=== PATIENT | male | born 1990 | race Caucasian/White ===

== ENCOUNTER 2021-04-10 19:23 | Emergency (ER) | payer BC ==
[2021-04-10] MEDS ORDERED: Fluorescein Opthalmic Strip ONE (19:36)
[2021-04-10] MEDS ORDERED: Tetracaine 0.5% PF 4 ML BOT ONE (19:36)
== END 2021-04-10 20:05 | disposition home or self-care (01) ==
LOC: MADERS 19:23
DX: H10.9 Unspecified conjunctivitis (principal); I10 Essential (primary) hypertension; F17.220 Nicotine dependence, chewing tobacco, uncomplicated; Z79.899 Other long term (current) drug therapy
CPT/HCPCS: 99282

== ENCOUNTER 2022-05-28 21:20 | Emergency (ER) | payer BC, OTHER ==
[2022-05-28] MEDS ORDERED: Bacitracin 1 PK ONE (22:25)
== END 2022-05-28 22:36 | disposition home or self-care (01) ==
LOC: MADERS 21:20
DX: S61.511D Laceration without foreign body of right wrist, subsequent encounter (principal); I10 Essential (primary) hypertension; F17.220 Nicotine dependence, chewing tobacco, uncomplicated; Z79.899 Other long term (current) drug therapy; X58.XXXD Exposure to other specified factors, subsequent encounter
CPT/HCPCS: 99282

== ENCOUNTER 2023-02-23 18:50 | Emergency (ER) | payer OTHER ==
[2023-02-23] MEDS ORDERED: Metoclopramide HCl 10 MG/2 ML VIAL ONE (19:57)
[2023-02-23] MEDS ORDERED: Sodium Chloride 0.9% 1,000 ML ONE (19:57)
[2023-02-23] MEDS ORDERED: Ketorolac Tromethamine 30 MG/ML VIAL ONE (19:57)
== END 2023-02-23 21:05 | disposition home or self-care (01) ==
LOC: MADERS 18:50
DX: G43.909 Migraine, unspecified, not intractable, without status migrainosus (principal); I10 Essential (primary) hypertension; F17.220 Nicotine dependence, chewing tobacco, uncomplicated; Z79.899 Other long term (current) drug therapy
CPT/HCPCS: 96374; 96375; J1885; J2765; J7050